=== PATIENT | male | born 1970 | race Caucasian/White ===

== ENCOUNTER 2018-02-13 23:22 | Emergency (ER) | payer SELFPAY ==
[~2018-02-13] VITALS: Ht 188 cm; Wt 81.8 kg
[~2018-02-13 23:22] MED LIST: NOCURR
[2018-02-14] MEDS ORDERED: SULFAMETHOX/TRIMETH DS 800-160 MG/TABLET PO ONE (03:00)
[2018-02-14] MEDS ORDERED: CEPHALEXIN MONOHYDRATE 500 MG CAPSULE PO ONE (03:00)
[2018-02-14 03:11] VITALS: BP 129/85
== END 2018-02-14 03:22 | disposition home or self-care (01) ==
LOC: EMS 23:22
DX: T81.4XXA Infection following a procedure, initial encounter (principal); L03.115 Cellulitis of right lower limb; F17.210 Nicotine dependence, cigarettes, uncomplicated
CPT/HCPCS: 99283; 99406

== ENCOUNTER 2020-04-19 02:34 | Emergency (ER) | payer SELFPAY ==
[~2020-04-19] VITALS: Ht 188 cm; Wt 86.4 kg
[2020-04-19 02:36] VITALS: BP 145/92
== END 2020-04-19 05:17 | disposition home or self-care (01) ==
LOC: EMS 02:34
DX: L08.9 Local infection of the skin and subcutaneous tissue, unspecified (principal); F19.10 Other psychoactive substance abuse, uncomplicated; F12.10 Cannabis abuse, uncomplicated; F17.210 Nicotine dependence, cigarettes, uncomplicated
CPT/HCPCS: 99406

== ENCOUNTER 2022-08-07 14:49 | Emergency (ER) | payer MEDICAID ==
[~2022-08-07] VITALS: Ht 188 cm; Wt 90.9 kg
[2022-08-07] MEDS ORDERED: LIDOCAINE 2%/EPI 1:200,000/PF 10 ML VIAL ID ONE (15:45)
[2022-08-07] MEDS ORDERED: PERTUSS(ACELL),DIPH,TET VAC/PF 0.5 ML SYRINGE IM. ONE (15:45)
[2022-08-07 17:44] VITALS: BP 130/76
== END 2022-08-07 18:04 | disposition home or self-care (01) ==
LOC: EMS 15:19
DX: S61.412A Laceration without foreign body of left hand, initial encounter (principal); F10.20 Alcohol dependence, uncomplicated; F12.90 Cannabis use, unspecified, uncomplicated; F15.10 Other stimulant abuse, uncomplicated; F17.210 Nicotine dependence, cigarettes, uncomplicated; W26.9XXA Contact with unspecified sharp object(s), initial encounter; Y93.89 Activity, other specified; Y92.89 Other specified places as the place of occurrence of the external cause; Y99.8 Other external cause status
CPT/HCPCS: 12002; 90471; 90715; 99283

== ENCOUNTER 2023-04-26 23:10 | Emergency (ER) | payer MEDICAID ==
[~2023-04-26] VITALS: Ht 188 cm; Wt 90.9 kg
[2023-04-27] MEDS ORDERED: CefTRIAXone SODIUM 1 GM/VIAL IM ONE (00:30)
[2023-04-27] MEDS ORDERED: LIDOCAINE/PF 1% 2 ML VIAL IM ONE (00:30)
[2023-04-27] MEDS ORDERED: CEPH-558 PO (00:37)
[2023-04-27] MEDS ORDERED: SULF-261 PO (00:37)
[2023-04-27] MEDS ORDERED: DIPH25CA85 PO (00:37)
[2023-04-27] MEDS ORDERED: DiphenhydrAMINE HCL 25 MG CAPSULE PO ONE (00:45)
[2023-04-27 01:31] VITALS: BP 142/95; PULSE 73; RESP 18; TEMP 98.1
== END 2023-04-27 01:24 | disposition home or self-care (01) ==
LOC: EMS 23:10
DX: L03.313 Cellulitis of chest wall (principal); F17.210 Nicotine dependence, cigarettes, uncomplicated; F12.90 Cannabis use, unspecified, uncomplicated; F15.90 Other stimulant use, unspecified, uncomplicated
CPT/HCPCS: 99283; 87205; 96372; 87070; J0696; J3490

== ENCOUNTER 2025-07-26 23:33 | Emergency (ER) | payer MEDICAID ==
[~2025-07-26] VITALS: Ht 185.4 cm; Wt 95.5 kg
[~2025-07-26 23:33] MED LIST changes: +CEPH-558 PO; +DIPH25CA85 PO; -NOCURR; +SULF-261 PO
[2025-07-26 23:42] VITALS: BP 150/86; PULSE 85; RESP 16; TEMP 97.5; O2SAT 98
[2025-07-27] MEDS: CETIRIZINE HCL 10 MG TABLET PO ONE (00:30)
== END 2025-07-27 00:38 | disposition home or self-care (01) ==
LOC: EMS 23:34
DX: S80.862A Insect bite (nonvenomous), left lower leg, initial encounter (principal); S80.861A Insect bite (nonvenomous), right lower leg, initial encounter; S40.862A Insect bite (nonvenomous) of left upper arm, initial encounter; S40.861A Insect bite (nonvenomous) of right upper arm, initial encounter; L29.9 Pruritus, unspecified; F12.90 Cannabis use, unspecified, uncomplicated; F17.210 Nicotine dependence, cigarettes, uncomplicated; F15.90 Other stimulant use, unspecified, uncomplicated; Z20.7 Contact with and (suspected) exposure to pediculosis, acariasis and other infestations; W57.XXXA Bitten or stung by nonvenomous insect and other nonvenomous arthropods, initial encounter; Y93.89 Activity, other specified; Y92.89 Other specified places as the place of occurrence of the external cause; Y99.8 Other external cause status
CPT/HCPCS: 99283; J8540